=== PATIENT | female | born 1965 | race Caucasian/White ===

== ENCOUNTER → 2023-04-14 08:56 | Outpatient (REF) | payer BC, SELFPAY | LOC: RAD 08:56 | PROVIDERS: ATTENDING PHYSICIAN Registered Nurse | DX: M85.80 Other specified disorders of bone density and structure, unspecified site (principal) | CPT/HCPCS: 77080 ==

== ENCOUNTER 2023-05-14 10:43 | Emergency (ER) | payer OTHER, SELFPAY ==
[2023-05-14 11:03] VITALS: BP 138/81
[2023-05-14 11:35] LABS: % Basophils 0.7 % (0-2); % Eosinophils 0.1 % (0-6); % Immature Granulocytes 0.4 % (0-0.5); % Monocytes 5.5 % (1.7-9.3); % Neutrophils 76.3 % (42.2-75.2); Absolute Basophils 0.1 10^3/uL (0-0.2); Absolute Lymphocytes 1.3 10^3/uL (1.2-3.4); Absolute Monocytes 0.4 10^3/uL (0.1-0.6); Absolute Neutrophils 5.7 10^3/uL (1.4-6.5); Hematocrit 38.8 % (37.0-47.0); Hemoglobin 13.5 g/dL (12.0-16.0); Mean Corp Hgb Conc. 34.8 g/dL (33.0-37.0); Mean Corpuscular Hgb 30.8 pg (27.0-31.0); Mean Corpuscular Volume 88.6 fL (81.0-99.0); Nucleated Red Blood Cells % 0 %; Platelet Count 298 10^3/uL (130-400); Red Blood Cell Count 4.38 10^6/uL (4.20-5.40); Red Cell Dist. Width 12.2 % (11.5-14.5); White Blood Cell Count 7.5 10^3/uL (4.8-10.8)
[2023-05-14 11:49] LABS: ALT (SGPT) 32 U/L (0-35); AST (SGOT) 37 U/L (14-36); Albumin 4.5 g/dl (3.5-5.0); Alkaline Phosphatase 73 U/L (38-126); Blood Urea Nitrogen 15 mg/dl (7-17); Calcium 9.8 mg/dl (8.4-10.2); Carbon Dioxide 28 mmol/L (22-30); Chloride 100 mmol/L (98-107); Glucose 120 mg/dl (70-99); Potassium 5.1 mmol/L (3.5-5.1); Sodium 136 mmol/L (135-145); Total Bilirubin 0.7 mg/dl (0.2-1.3); Total Protein 7.9 g/dl (6.3-8.2); eGFR > 60.00
[2023-05-14 11:51] LABS: Troponin I < 0.012 ng/ml
[2023-05-14 14:00] VITALS: BP 112/79
[2023-05-14 14:29] VITALS: BMI 22.7
--- NOTE | 2023-05-14 15:26 | ED.GENMED ---
History of Present Illness
General
Chief Complaint: Fainting/Passed Out
Source: patient and spouse
Time Seen by Provider: 05/14/23 13:12
Travel History
Have you had any contact with someone who has COVID-19?: No
Do you have any symptoms of coronavirus? Fever > 100 degrees, chills, cough, shortness of breath, sore throat, loss of taste or smell, muscle aches, or headache?: No
History of Present Illness
History of Present Illness:
58-year-old female presents after she passed out last night. The patient states she was watching TV downstairs and got up and went to walk up the steps. At the top of the steps she felt little dizzy. She then went to urinate and felt more dizzy
like she was going to pass out and woke up on the floor. She states she did not suspect her laceration was as bad as it was and then decided come get evaluated today. Does have a mild headache. No neck pain. No chest pain. No shortness of
breath.
Past History
Past History
ED Past Medical History: Hypercholesterolemia and Other (Vertigo)
Phy Exam
Physical Exam
Physical Exam:
CONSTITUTIONAL Patient alert and oriented to person, place and time. Well-appearing. Vital signs reviewed.
HEAD 3.5 cm laceration to the right forehead that is oriented in the straight vertical orientation. There is no active bleeding. It does appear to be at stated age about 12 hours ago.
EYES eyelids normal to inspection, Pupils equally round and reactive to light, Extraocular muscles intact, Conjunctiva normal, Sclera normal.
NECK normal range of motion, Trachea midline, no jugular venous distention.
RESPIRATORY CHEST No respiratory distress noted, Chest expansion equal, Bilateral breath sounds clear.
CARDIOVASCULAR regular rate and rhythm, Heart sounds normal.
ABDOMEN abdomen nontender, Bowel sounds normal. No distention.
BACK normal inspection, no obvious deformities
UPPER EXTREMITY range of motion normal, Motor strength normal, no cyanosis, no edema.
LOWER EXTREMITY range of motion normal, Motor strength normal, no cyanosis, no edema.
NEURO Speech normal, No focal motor deficits, Ramona coma scale 15, Memory normal, Cranial Nerves intact to screening exam.
SKIN skin warm, dry, and normal in color.
PSYCHIATRIC patient oriented to person place and time, Normal affect.
Course
Orders/Labs/Results
Orders:
Orders
05/14/23 11:22
Electrocardiogram (*1) Urgent
Reason for Study: Chest Pain
EKG- Treatment ONCE
05/14/23 11:24
Complete Blood Count/With Diff Urgent
Comprehensive Metabolic Panel Urgent
Troponin I Urgent
05/14/23 14:04
CT Head W/o Iv Contrast Urgent
Comment:
Reason For Exam: fall, head injury
Abnormal Lab Results
05/14/23
11:24
Neutrophils % 76.3 H %
(42.2-75.2)
Lymphocytes % 17.0 L %
(20.5-51.1)
Glucose 120 H mg/dl
(70-99)
AST 37 H U/L
(14-36)
05/14/23 11:24
05/14/23 11:24
Vital Signs
Initial and Last Documented VS:
Initial Vital Signs
Temp Pulse Resp BP Pulse Ox
98.3 F 95 16 138/81 98
05/14/23 11:03 05/14/23 11:03 05/14/23 11:03 05/14/23 11:03 05/14/23 11:03
Last Documented Vital Signs
Temp Pulse Resp BP Pulse Ox
98.3 F 74 15 112/79 98
05/14/23 11:03 05/14/23 14:15 05/14/23 14:15 05/14/23 14:00 05/14/23 11:03
Procedures
Laceration Closure
Right Forehead:
Status of Wound: clean
Size of Wound in cm: 3.5
Description of Wound Edges: sharp
Preparation: cleaned with saline
Anesthesia: 1% Lidocaine with epi and added Na Bicarb to local
Revision/Debridement: minor revision
Wound exploration: explored to base- no FB
Type of Closure: single layer closure and running stitch
Skin Closure Material: 6-0 nylon
MDM/Problems Addressed
Differential Diagnosis Includes:
Anemia, blood loss, hypovolemia, vasovagal event, orthostatic hypotension.
MDM/Problems Addressed:
Head injury, facial laceration, syncope
*Radiology
Radiology exam reviewed: preliminary read by ED provider (No obvious intracranial) and radiology read reviewed
*Pulse Oximetry
Patient hypoxic: no
*EKG
Interpreted by ED Provider?: Yes
Interpretation: normal
Rate: normal
Rhythm: sinus
QRS Pattern: normal QRS
Ischemia: no ischemia
*[employer] Interpretation
Rate: normal
Interpretation: normal
Rhythm: sinus
*Critical Care Note
Total Time (30-74mins, 75-104mins- exclusive of procedures): Not Applicable
Data Reviewed
Source: patient and spouse
Further Testing Considered But Not Given:
Consider CTA to rule out PE but low risk and no clinical suspicion as etiology
Patient Management
Escalation/DeEscalation of care consider admission/obs:
Do not suspect cardiac cause. Okay for discharge. Lack repaired and recommended outpatient PCP versus plastics follow-up given that she waited more than 12 hours for repair
ED Attending Note
-
Portions of this chart may have been created with voice recognition software.� Occasional wrong word or��sound alike� substitutions may have occurred due to the inherent limitations of voice recognition software.
Discharge Plan
Departure
Patient Disposition: Home (Routine Discharge)
Date of Disposition: 05/14/23
Time of Disposition: 15:57
Patient with high blood pressure during this ER visit?: No
Discharge Problem:
Head injury, Laceration, Syncope
Instructions: Head injury in adults, Syncope (Fainting) (DC)
Referrals:
Clifford Mason DO [Family Provider] -
Torres Bella DO [Active] -
Activity Restrictions/Additional Instructions:
Please see your doctor or plastics in the next 1 week for follow-up and reevaluation. Please have your wound reevaluated and sutures removed in 1 week. Return for vomiting, palpitations, chest pain, shortness of breath or any other concerns.
Interventions
Interventions:
*Risk Screen - Suicide Last Done: 05/14/23 11:03
*General Assessment Last Done: 05/14/23 11:03
*Neglect/Abuse Screening Last Done: 05/14/23 11:03
ED- Fall Risk Assessment Last Done: 05/14/23 14:29
ED- Cardiac Assessment Last Done: 05/14/23 14:29
ED- Neurological Assessment Last Done: 05/14/23 14:29
[2023-05-14] MEDS: ADACEL 0.5 ML IM (16:04)
[2023-05-14 16:12] VITALS: BP 123/78
== END 2023-05-14 16:22 | disposition home or self-care (01) ==
LOC: EMR 10:43
PROVIDERS: Emergency Medicine; EMERGENCY PHYSICIAN Emergency Medicine; FAMILY PHYSICIAN Family Medicine
DX: S01.81XA Laceration without foreign body of other part of head, initial encounter (principal); X58.XXXA Exposure to other specified factors, initial encounter; R55 Syncope and collapse; Z23 Encounter for immunization
CPT/HCPCS: 99285; 12052; 90471; 70450; 80053; 84484; 85025; 90715; 93005

== ENCOUNTER → 2024-04-12 14:05 | Outpatient (REF) | payer OTHER, SELFPAY | LOC: HWWDC 14:05 | PROVIDERS: ATTENDING PHYSICIAN Student in an Organized Health Care Education/Training Program; REFERRING PHYSICIAN Obstetrics & Gynecology | DX: Z12.31 Encounter for screening mammogram for malignant neoplasm of breast (principal) | CPT/HCPCS: 77063; 77067 ==

== ENCOUNTER → 2024-12-04 14:05 | Outpatient (REF) | payer OTHER, SELFPAY | LOC: HWRAD 14:05 | PROVIDERS: ATTENDING PHYSICIAN Student in an Organized Health Care Education/Training Program | DX: M25.472 Effusion, left ankle (principal) | CPT/HCPCS: 73610 ==